=== PATIENT | female | born 1990 ===

== ENCOUNTER 2021-10-21 22:29 | Emergency (ER) | payer OTHER ==
[~2021-10-21 22:29] MED LIST: AMOX TR-K CLV1 EAC4 PO; KEFLEX500 MG PO; KEPPRA 500 MG500 MG PO
== END 2021-10-21 23:28 | disposition left against medical advice (07) ==
LOC: ER1 22:29
DX: R10.9 Unspecified abdominal pain (principal); M54.9 Dorsalgia, unspecified
CPT/HCPCS: 93005; 99281